=== PATIENT | female | born 1955 | race Caucasian/White ===

== ENCOUNTER 2016-09-25 14:09 | Inpatient (IN) | payer OTHER ==
[~2016-09-25] VITALS: Ht 149.8 cm; Wt 137.2 kg
--- NOTE | ~2016-09-25 | ST ---
[place], [place] EXERCISE STRESS TEST REPORT NAME: GUIDO OGDEN UNIT #: [id number] ROOM: 532 DOCTOR: NICOLE CEE MD BIRTHDATE: [birth year] DOS: 09/26/2016 Lexiscan portion of the Lexiscan Cardiolite. Baseline cardiogram, sinus rhythm, normal axis, normal intervals, poor R-wave progression in the anterior leads 0.4 mg Lexiscan, duration of 10 seconds. With Lexiscan, the patient had some chest pressure. No obvious EKG changes, suggestion of myocardial injury or infarction. Hemodynamically stable blood pressure. FINAL IMPRESSION: No EKG changes with Lexiscan. No chest pain with Lexiscan. Positive chest pressure with Lexiscan. Blood pressure and heart rate responses normal. Nuclear images will be reported separately. NICOLE CEE MD CM:STRESS:EXERCISE STRESS TEST REPORT [id number] NICOLE CEE MD
--- NOTE | ~2016-09-25 | CON ---
[place], [place] REPORT OF CONSULTATION NAME: GUIDO OGDEN UNIT #: [id number] ROOM: 532 DOCTOR: NICOLE CEE MD BIRTHDATE: [birth year] DOS: 09/25/2016 HISTORY OF PRESENT ILLNESS: A 61-year-old female apparently admitted with [facility]. She was doing the laundry at the time of chest pain. She states that she took 1 sublingual nitro. No acute EKG changes suggestion of myocardial injury or infarction. The patient has done quite well from the cardiac point of view. PAST MEDICAL HISTORY: ____, depression, chronic pain disorder, hemochromatosis, hypothyroidism, history of thyroidectomy, hysterectomy, and cholecystectomy. SOCIAL HISTORY: Does not drink or smoke. FAMILY HISTORY: Not contributory. ALLERGIES: TO PENICILLIN, CIPRO, IODINE. HOME MEDICATIONS: Atenolol, levothyroxine, sertraline and Coumadin. REVIEW OF SYSTEMS: CONSTITUTIONAL: No fever, no chills. HEENT: No visual disturbances or hearing problems. CARDIOVASCULAR: As per HPI. GASTROINTESTINAL: No nausea, no vomiting. GENITOURINARY: No dysuria, hematuria. NEUROLOGIC: No syncope. All other review of systems are negative. PHYSICAL EXAMINATION: VITAL SIGNS: Blood pressure is 140/80. HEENT: Unremarkable. NECK: Supple, no JVD, no thyromegaly, no lymphadenopathy. LUNGS: Clear to auscultation and percussion. HEART: Heart sounds are regular. ABDOMEN: Soft, nontender. NEUROLOGICAL: Stable. LABORATORY DATA: Electrolytes are normal. Creatinine is normal. GFR is normal. INR is normal. Hemoglobin 14 and hematocrit within normal limits. EKG, sinus with nonspecific ST-T changes. IMPRESSION: Atypical chest pain, chronic pain disorder, gastroesophageal reflux disease, [place], [place] REPORT OF CONSULTATION NAME: GUIDO OGDEN UNIT #: [id number] ROOM: 532 DOCTOR: NICOLE CEE MD BIRTHDATE: [birth year] hemochromatosis, hypercoagulable state. RECOMMENDATIONS: We will review the echocardiogram. Continue with other medications. Monitor the heart rate and blood pressure and cardiac enzymes are all negative. Consideration should be given for an outpatient stress test. NICOLE CEE MD CM:CONSTR:REPORT OF CONSULTATION 0 09/26/16 0730 interface
[~2016-09-25 14:09] MED LIST: AMITRIPTYLINE75 MG PO; ATENOLOL50 MG PO; BACLOFEN10 MG PO; DURAGESIC50 MCG/HR TD; LEVOTHYROXINE0.2 MG PO; LISINOPRIL5 MG PO; MACROBID100 M1 PO; MORPHINE SULFAT15 MG PO; MOTRIN800 MG PO; NORTRIPTYLINE H10 M1 PO; OMEPRAZOLE20 MG PO; OMEPRAZOLE40 MG PO; SEPTRA DS 800 M1 TAB PO; SERTRALINE HCL100 MG PO; SULINDAC150 MG PO; SULINDAC200 MG PO; TRAZODONE50 MG PO; VICODIN ES 7501 TA1 PO; VITAMIN B11000 MCG/M IM; VITAMIN D5000 IU PO; WARFARIN2 MG PO; XANAX0.5 MG PO; ZITHROMAX Z PA250 MG PO
[2016-09-25 14:15] VITALS: BP 160/84
[2016-09-25] MEDS ORDERED: ROBAXIN-750750 MG PO (14:21)
[2016-09-25 14:34] LABS: BASO # 0.1 10*3/uL (0.0-0.1); BASO % 0.8 % (0.0-1.0); EOS # 0.2 10*3/uL (0.0-0.4); EOS % 2.5 % (1.0-4.0); HEMATOCRIT 44.9 % (37.0-47.0); HEMOGLOBIN 14.9 g/dl (12.0-16.0); LYMPH # 2.3 10*3/uL (1.3-4.4); MEAN CELL VOLUME 88.4 fl (81.0-99.0); MEAN CORPUSCULAR HGB 29.3 pg (27.0-31.0); MEAN CORPUSCULAR HGB CONC 33.2 g/dl (33.0-37.0); MEAN PLATELET VOLUME 11.5 fl (9.6-12.3); MONO # 0.5 10*3/uL (0.1-1.0); MONO % 6.9 % (3.0-9.0); NEUT # 4.5 10*3/uL (2.3-7.9); NEUT % 59.5 % (47.0-73.0); PLATELET COUNT AUTOMATED 171 10*3/uL (130-400); RED BLOOD COUNT 5.08 10*6/uL (4.10-5.10); RED CELL DISTRI WIDTH 12.2 % (0-14.5); WHITE BLOOD COUNT 7.5 10*3/uL (4.8-10.8)
[2016-09-25 14:44] LABS: INTERNATIONAL NORM RATIO 3.3 (2.0-3.5); PROTHROMBIN TIME 37.6 SECONDS (9.0-12.4)
[2016-09-25 14:53] LABS: ALBUMIN 3.3 gm/dl (3.1-4.5); ALKALINE PHOSPHATASE 55 U/L (45-117); BILIRUBIN, TOTAL 0.6 mg/dl (0.2-1.0); BUN 14 mg/dl (7-24); C-REACTIVE PROTEIN 0.49 MG/DL (0-0.3); CARBON DIOXIDE 24 mmol/L (21-32); CHLORIDE 109 mmol/L (98-107); CKMB 0.9 ng/ml (0.5-3.6); CPK 84 U/L (26-192); EST GLOM FILT AFRICAN AMERICAN > 60 ml/min; GLUCOSE 125 mg/dL (65-99); POTASSIUM 4.4 mmol/L (3.5-5.1); SGOT/AST 30 IU/L (3-35); SGPT/ALT 35 U/L (12-78); SODIUM 143 mmol/L (136-145)
[2016-09-25 14:55] LABS: TROPONIN I < 0.015 ng/ml (<0.045)
[2016-09-25 15:16] VITALS: BP 159/92
[2016-09-25 15:31] VITALS: BP 161/104
[2016-09-25 15:45] VITALS: BP 143/80
[2016-09-25] MEDS ORDERED: ZOLOFT100 MG PO (16:03)
[2016-09-25 18:25] LABS: CKMB 0.8 ng/ml (0.5-3.6)
[2016-09-25] MEDS ORDERED: SULINDAC150 MG PO (19:37)
[2016-09-25] MEDS ORDERED: HYDR1000 IM (19:44)
[2016-09-25] MEDS ORDERED: NATURE'S BLEND F1 MG PO (19:44)
[2016-09-26] VITALS: BP 124/65
[2016-09-26 00:20] LABS: CKMB < 0.5 ng/ml (0.5-3.6); CPK 83 U/L (26-192)
[2016-09-26 06:17] LABS: BASO # 0.1 10*3/uL (0.0-0.1); BASO % 0.7 % (0.0-1.0); EOS # 0.2 10*3/uL (0.0-0.4); EOS % 2.6 % (1.0-4.0); HEMATOCRIT 44.1 % (37.0-47.0); HEMOGLOBIN 14.6 g/dl (12.0-16.0); LYMPH # 2.5 10*3/uL (1.3-4.4); LYMPH % 35.4 % (27.0-41.0); MEAN CELL VOLUME 90.4 fl (81.0-99.0); MEAN CORPUSCULAR HGB 29.9 pg (27.0-31.0); MEAN CORPUSCULAR HGB CONC 33.1 g/dl (33.0-37.0); MEAN PLATELET VOLUME 11.4 fl (9.6-12.3); MONO # 0.7 10*3/uL (0.1-1.0); MONO % 9.5 % (3.0-9.0); NEUT # 3.6 10*3/uL (2.3-7.9); NEUT % 51.5 % (47.0-73.0); PLATELET COUNT AUTOMATED 180 10*3/uL (130-400); RED BLOOD COUNT 4.88 10*6/uL (4.10-5.10); RED CELL DISTRI WIDTH 12.6 % (0-14.5); WHITE BLOOD COUNT 6.9 10*3/uL (4.8-10.8)
[2016-09-26 06:23] LABS: CKMB < 0.5 ng/ml (0.5-3.6); CPK 91 U/L (26-192)
[2016-09-26 06:25] LABS: HEMOGLOBIN A1c 6.5 % (4.8-5.6)
[2016-09-26 06:45] LABS: ALBUMIN 3.2 gm/dl (3.1-4.5); ALKALINE PHOSPHATASE 55 U/L (45-117); BILIRUBIN, TOTAL 0.6 mg/dl (0.2-1.0); BUN 13 mg/dl (7-24); CARBON DIOXIDE 26 mmol/L (21-32); CHLORIDE 107 mmol/L (98-107); CHOLESTEROL 175 mg/dL (<200); EST GLOM FILT AFRICAN AMERICAN > 60 ml/min; GLUCOSE 122 mg/dL (65-99); HDL CHOLESTEROL 51 mg/dl (40-60); LDL CHOLESTEROL 86 mg/dL (9-159); MAGNESIUM 2.1 mg/dL (1.5-2.1); PHOSPHOROUS 3.4 mg/dL (2.5-4.9); POTASSIUM 4.1 mmol/L (3.5-5.1); SGOT/AST 23 IU/L (3-35); SGPT/ALT 31 U/L (12-78); SODIUM 142 mmol/L (136-145); TOTAL PROTEIN 6.8 gm/dL (6.4-8.2); TRIGLYCERIDES 188 mg/dl (<150); VLDL CHOLESTEROL 38 mg/dL (6-40)
[2016-09-26 06:48] LABS: PROTHROMBIN TIME 34.4 SECONDS (9.0-12.4)
[2016-09-26 06:51] LABS: THYROID STIM HORMONE (HS) 0.053 uIU/ml (0.358-4.75)
[2016-09-26 07:05] LABS: VITAMIN D, 25-HYDROXY 67.1 ng/mL (30-100)
[2016-09-26] MEDS ORDERED: NORVASC2.5 MG PO (07:06)
[2016-09-26 07:10] LABS: FOLIC ACID > 24.00 ng/mL (>5.38)
[2016-09-26 09:40] VITALS: BP 107/82
[2016-09-26 12:00] VITALS: BP 121/75
[2016-09-26 16:00] VITALS: BP 130/74
== END 2016-09-26 17:32 | disposition home or self-care (01) | DRG 392 ==
LOC: ED 14:09 → 5E 15:14 → EDHOLD 15:14 → 5E 15:23
PROVIDERS: Emergency Medicine; Hospitalist
PROC: 4A02XM4 Measurement of Cardiac Total Activity, External Approach (ICD-10-PCS; principal; 2016-09-26)
PROC: 3E073KZ Introduction of Other Diagnostic Substance into Coronary Artery, Percutaneous Approach (ICD-10-PCS; principal; 2016-09-26)
DX: K21.9 Gastro-esophageal reflux disease without esophagitis (principal); D68.51 Activated protein C resistance; D68.59 Other primary thrombophilia; I82.502 Chronic embolism and thrombosis of unspecified deep veins of left lower extremity; R07.89 Other chest pain; G89.29 Other chronic pain; E83.119 Hemochromatosis, unspecified; F32.9 Major depressive disorder, single episode, unspecified; G47.00 Insomnia, unspecified; E89.0 Postprocedural hypothyroidism; Z90.710 Acquired absence of both cervix and uterus; Z90.49 Acquired absence of other specified parts of digestive tract; Z82.49 Family history of ischemic heart disease and other diseases of the circulatory system; Z88.0 Allergy status to penicillin; Z88.1 Allergy status to other antibiotic agents; Z88.2 Allergy status to sulfonamides; Z88.8 Allergy status to other drugs, medicaments and biological substances; Z91.041 Radiographic dye allergy status; Z79.01 Long term (current) use of anticoagulants; Z79.899 Other long term (current) drug therapy; Z91.048 Other nonmedicinal substance allergy status

== ENCOUNTER 2019-05-01 15:08 | Inpatient (IN) | payer OTHER ==
[~2019-05-01] VITALS: Ht 152.4 cm; Wt 137.9 kg
[~2019-05-01 15:08] MED LIST changes: +HYDR1000 IM; +NATURE'S BLEND F1 MG PO; +NORVASC2.5 MG PO; +ROBAXIN-750750 MG PO; +ZOLOFT100 MG PO
[2019-05-01 16:19] LABS: BASO # 0.1 10*3/uL (0.0-0.1); BASO % 0.6 % (0.0-1.0); EOS # 0.1 10*3/uL (0.0-0.4); EOS % 0.8 % (1.0-4.0); HEMATOCRIT 44.1 % (37.0-47.0); HEMOGLOBIN 14.1 g/dl (12.0-16.0); LYMPH # 1.8 10*3/uL (1.3-4.4); LYMPH % 16.1 % (27.0-41.0); MEAN CELL VOLUME 94.6 fl (81.0-99.0); MEAN CORPUSCULAR HGB 30.3 pg (27.0-31.0); MEAN PLATELET VOLUME 11.3 fl (9.6-12.3); MONO % 9.3 % (3.0-9.0); NEUT # 7.9 10*3/uL (2.3-7.9); NEUT % 72.7 % (47.0-73.0); PLATELET COUNT AUTOMATED 164 10*3/uL (130-400); RED BLOOD COUNT 4.66 10*6/uL (4.10-5.10); RED CELL DISTRI WIDTH 13.2 % (0-14.5); WHITE BLOOD COUNT 10.9 10*3/uL (4.8-10.8)
[2019-05-01 16:38] LABS: ALBUMIN 3.2 gm/dl (3.1-4.5); ALKALINE PHOSPHATASE 72 U/L (45-117); BUN 17 mg/dl (7-24); CHLORIDE 107 mmol/L (98-107); CREATININE 0.85 mg/dL (0.55-1.02); POTASSIUM 3.8 mmol/L (3.5-5.1); SGOT/AST 17 IU/L (3-35); SGPT/ALT 23 U/L (12-78); SODIUM 138 mmol/L (136-145); TOTAL PROTEIN 7.1 gm/dL (6.4-8.2)
[2019-05-01 17:00] LABS: INTERNATIONAL NORM RATIO 1.8 (2.0-3.5)
[2019-05-01 18:15] VITALS: BP 164/106
--- NOTE | 2019-05-01 18:15 | NUR ---
Time: 1814 A 63 year old f admitted to 5E under services of SARAHY ENCINAS DO. Pt. arrived via wheel chair from ER. Chief complaint: cellulitis right hand BRYAN ALDANA
[2019-05-01] MEDS ORDERED: VITAMIN D35000 UNIT PO (19:21)
[2019-05-01] MEDS ORDERED: LEVOXYL150 MCG PO (19:24)
[2019-05-01] MEDS ORDERED: ATENOLOL50 M1 PO (19:26)
[2019-05-01] MEDS ORDERED: NORCO 7.5-3251 EACH PO (19:27)
[2019-05-01 20:00] VITALS: BP 141/81
--- NOTE | 2019-05-01 20:18 | NUR ---
24 HR chart check completed.
--- NOTE | 2019-05-01 21:00 | NUR ---
RESTING IN BED. RESPIRATIONS EASY. LUNGS DIMINISHED, CLEAR. PULSE OX 94% RA. RIGHT INDEX FINGER RED, WARM, AND EDEMATOUS. CALL LIGHT WITHIN REACH.
--- NOTE | 2019-05-01 22:30 | NUR ---
MEDICATED WITH ROUTINE NORCO TO ASSIST WITH RIGHT FINGER "THROBBING" RATING AN 8. WILL MONITOR
[2019-05-01] MEDS ORDERED: AMLODIPINE BES2.5 MG PO (22:32)
[2019-05-02] VITALS (10 sets, daily range): BP systolic 132–190; BP diastolic 82–108
--- NOTE | 2019-05-02 | NUR ---
MEDS EFFECTIVE. RESTING WITH EYES CLOSED. RESPIRATIONS EASY. VSS. CALL LIGHT WITHIN REACH
--- NOTE | 2019-05-02 04:52 | NUR ---
DOZED THROUGHOUT NIGHT. RIGHT INDEX FINGER REMAINS RED, WARM, AND EDEMATOUS - CONTINUES TO C/O PAIN/THROBBING RATING AN 8, MEDICATED WITH TYLENOL PER PRN ORDER. CALL LIGHT WITHIN REACH. WILL MONITOR
--- NOTE | 2019-05-02 06:00 | NUR ---
STATES EARLIER TYLENOL "HELPING". OFFERED MORPHINE PER PRN ORDER, DECLINED.
[2019-05-02 06:21] LABS: BASO # 0.1 10*3/uL (0.0-0.1); BASO % 0.5 % (0.0-1.0); BUN 18 mg/dl (7-24); CHLORIDE 108 mmol/L (98-107); CREATININE 0.79 mg/dL (0.55-1.02); EOS # 0.1 10*3/uL (0.0-0.4); EOS % 1.5 % (1.0-4.0); HEMATOCRIT 42.9 % (37.0-47.0); HEMOGLOBIN 13.5 g/dl (12.0-16.0); LYMPH % 22.1 % (27.0-41.0); MEAN CELL VOLUME 92.9 fl (81.0-99.0); MEAN CORPUSCULAR HGB 29.2 pg (27.0-31.0); MEAN CORPUSCULAR HGB CONC 31.5 g/dl (33.0-37.0); MEAN PLATELET VOLUME 11.9 fl (9.6-12.3); MONO # 0.9 10*3/uL (0.1-1.0); MONO % 10.2 % (3.0-9.0); NEUT % 65.4 % (47.0-73.0); PLATELET COUNT AUTOMATED 174 10*3/uL (130-400); POTASSIUM 3.7 mmol/L (3.5-5.1); RED BLOOD COUNT 4.62 10*6/uL (4.10-5.10); RED CELL DISTRI WIDTH 13.3 % (0-14.5); SODIUM 140 mmol/L (136-145); WHITE BLOOD COUNT 9.2 10*3/uL (4.8-10.8)
[2019-05-02 06:43] LABS: INTERNATIONAL NORM RATIO 1.6 (2.0-3.5)
--- NOTE | 2019-05-02 07:47 | NUR ---
24 HR chart check completed.
--- NOTE | 2019-05-02 08:50 | NUR ---
GUIDO OGDEN [id number] Please refer to the physician's history and physical for past medical history, comorbid conditions, and allergies. Diagnosis: CELLULITIS FINGER,FAILURE OF OUTPATIENT TREATMENT Vijay Score: 22,LOW OR NO RISK WOUND DESCRIPTIONS: Wound Number: 1 Location of the wound: right index finger Thickness: Full Size: 0.3cm x 0.3cm x <0.1cm Tunneling: none Undermining: none Sinus Tract: none Presence of Exudate: none Amount: None Color: Brown Odor: None Periwound Skin Appearance: dark red 3.8cm x 7.0cm x <0.1cm light red along with dark red measures 9.5cm x 10.0, firmness Wound edges: closed Pain (associated with wound): very tender to touch How does patient state this happened? pt stated she removed a splinter on sunday which she believes she got from a ramp outside. She stated later that night it became sore and sunday her whole hand turned red she stated she followed up with her doctor his tried to lanced it in the office and wasn't able to get anything out she stated he started her on antibiotics and she was told if it wasn't better or got worse by to have it seen in the ED Surface the patient is resting on: Isoflex SKIN PREVENTION RECOMMENDATION: 1. Pressure redistribution support surface as appropriate 2. Elevate heels 3. Remove boots/TEDS every shift and reapply 4. Head of bed 30 degrees as tolerated 5. Assess nutrition and hydration 6. Manage moisture 7. Avoid the use of containment devices while in bed 8. Use absorptive products on surfaces limit layers of linens on bed 9. Turn and reposition every 1-2 hours in bed and every 1 hour in chair as tolerated 10. Weight shifts every 15 minutes while up in chair 11. Offloading with pillows or device to keep heels elevated off bed 12. Monitor skin at least every shift 13. Inspect under medical devices twice a day WOUND TREATMENT RECOMMENDATIONS: Warm compress QID. Consult ortho or general surgery for possible I&D.
--- NOTE | 2019-05-02 08:56 | NUR ---
GUIDO OGDEN [id number] Please refer to the physician's history and physical for past medical history, comorbid conditions, and allergies. Diagnosis: CELLULITIS FINGER,FAILURE OF OUTPATIENT TREATMENT Vijay Score: 22,LOW OR NO RISK WOUND DESCRIPTIONS: Wound Number: 1 Location of the wound: right index finger Thickness: Full Size: 0.3cm x 0.3cm x <0.1cm Tunneling: none Undermining: none Sinus Tract: none Presence of Exudate: none Amount: None Color: Brown Odor: None Periwound Skin Appearance: dark red 3.8cm x 7.0cm x <0.1cm light red along with dark red measures 9.5cm x 10.0, firmness Wound edges: closed Pain (associated with wound): very tender to touch How does patient state this happened? pt stated she removed a splinter on sunday which she believes she got from a ramp outside. She stated later that night it became sore and sunday her whole hand turned red she stated she followed up with her doctor his tried to lanced it in the office and wasn't able to get anything out she stated he started her on antibiotics and she was told if it wasn't better or got worse by to have it seen in the ED. Patient stated she soaked it in peroxide after the spliter was taken and when she noticed there was a little pus and she stated she has even been soaking it in espon salt. Surface the patient is resting on: Isoflex SKIN PREVENTION RECOMMENDATION: 1. Pressure redistribution support surface as appropriate 2. Elevate heels 3. Remove boots/TEDS every shift and reapply 4. Head of bed 30 degrees as tolerated 5. Assess nutrition and hydration 6. Manage moisture 7. Avoid the use of containment devices while in bed 8. Use absorptive products on surfaces limit layers of linens on bed 9. Turn and reposition every 1-2 hours in bed and every 1 hour in chair as tolerated 10. Weight shifts every 15 minutes while up in chair 11. Offloading with pillows or device to keep heels elevated off bed 12. Monitor skin at least every shift 13. Inspect under medical devices twice a day WOUND TREATMENT RECOMMENDATIONS: Warm compress QID. Consult ortho or general surgery for possible I&D.
--- NOTE | 2019-05-02 09:10 | NUR ---
Dr. Davis notified of wound care recommendations.
--- NOTE | 2019-05-02 12:00 | NUR ---
DR YUSUF NOTIFIED OF HTN POST SURGERY.
--- NOTE | 2019-05-02 13:22 | NUR ---
PO Tylenol administered for patient c/o pain to right hand/1st digit. Will continue to monitor.
--- NOTE | 2019-05-02 15:09 | NUR ---
Superintendent Stations in to talk to patient. Patient states lives at HOME with . There are few steps in the home. Physician: tato connell Pharmacy: [facility] health services: none Patient's level of ADLs: INDEPENDENT Patient has working utilities: all working DME: walker Follow-up physician's appointment after d/c: will be made by hospitalist nurse director upon discharge Does patient want to access PORTAL?: no Discharge plan discussed with patient, she lives at home with , she is independent in adls and ambualtion she states she has a walker but doesn't use it much, she states she will return home when medically stable and denies any home needs, case management will follow. JAE BUTT
--- NOTE | 2019-05-02 20:00 | NUR ---
SPOKE WITH HOSPITALIST REGARDING PAIN MEDICATION AND SINUS CONGESTION.
[2019-05-03] VITALS: BP 131/75
--- NOTE | 2019-05-03 02:00 | NUR ---
PATIENT MEDICATED SLOWLY WITH MORPHINE PER PRN ORDER FOR C/O RIGHT HAND THUMPING WITH PAIN. RATED PAIN A 8/10 WITH 10 BEING THE WORST. SEE EMAR. REINFORCED USE OF CALL LIGHT. WARM COMPRESSAPPLIED AT THIS TIME.
--- NOTE | 2019-05-03 02:14 | NUR ---
24 HR chart check completed.
[2019-05-03 08:00] VITALS: BP 144/81
[2019-05-03 09:17] LABS: BASO % 0.6 % (0.0-1.0); EOS # 0.2 10*3/uL (0.0-0.4); EOS % 2.4 % (1.0-4.0); HEMOGLOBIN 13.2 g/dl (12.0-16.0); LYMPH # 1.9 10*3/uL (1.3-4.4); LYMPH % 28.4 % (27.0-41.0); MEAN CELL VOLUME 93.5 fl (81.0-99.0); MEAN CORPUSCULAR HGB 29.4 pg (27.0-31.0); MEAN CORPUSCULAR HGB CONC 31.4 g/dl (33.0-37.0); MEAN PLATELET VOLUME 11.3 fl (9.6-12.3); MONO # 0.7 10*3/uL (0.1-1.0); MONO % 9.8 % (3.0-9.0); NEUT # 3.9 10*3/uL (2.3-7.9); NEUT % 58.3 % (47.0-73.0); PLATELET COUNT AUTOMATED 173 10*3/uL (130-400); RED BLOOD COUNT 4.49 10*6/uL (4.10-5.10); RED CELL DISTRI WIDTH 13.2 % (0-14.5); WHITE BLOOD COUNT 6.7 10*3/uL (4.8-10.8)
[2019-05-03 09:36] LABS: BUN 17 mg/dl (7-24); CHLORIDE 109 mmol/L (98-107); CREATININE 0.81 mg/dL (0.55-1.02); POTASSIUM 4.2 mmol/L (3.5-5.1); SODIUM 140 mmol/L (136-145)
[2019-05-03 12:00] VITALS: BP 134/94
--- NOTE | 2019-05-03 13:00 | NUR ---
pt requested and was medicated with Tylenol for c/o right finger pain. call light in reach. will monitor
--- NOTE | 2019-05-03 14:00 | NUR ---
MEDICATION EFFECTIVE PER PT. WILL MONITOR
[2019-05-03 16:00] VITALS: BP 128/64
--- NOTE | 2019-05-03 16:00 | NUR ---
DR MURPHY IN TO SEE PT, DRSG REMOVED. POST OP WOUND PHOTOS TAKEN. NEW DRSG APPLIED. PT TOLERATED WELL. CALL LIGHT IN REACH. WILL MONITOR
--- NOTE | 2019-05-03 17:32 | NUR ---
DR BROWN CALLED AND NOTIFIED OF PT DECLINING TO HAVE BSG TAKEN. PT STATES SHE DOESN'T CHECK IT AT HOME. HE STATES UNDERSTANDING, BUT STATES TO JUST PEDRO THEM REFUSED. ALSO TO MONITOR FOR S/S OF HYPO/HYPERGLYCEMIA.
[2019-05-03 20:00] VITALS: BP 117/86
--- NOTE | 2019-05-03 23:02 | NUR ---
24 HR chart check completed.
[2019-05-04] VITALS: BP 141/70
--- NOTE | 2019-05-04 00:52 | NUR ---
PRN MORPHINE GIVEN FOR PT COMPLAINTS OF PAIN AND BURNING IN HER FINGER. CALL LIGHT WITHIN REACH, WILL MONITOR
--- NOTE | 2019-05-04 01:30 | NUR ---
PRN MORPHINE EFFECTIVE PER PT
[2019-05-04 07:01] LABS: BUN 17 mg/dl (7-24); CHLORIDE 109 mmol/L (98-107); CREATININE 0.76 mg/dL (0.55-1.02); POTASSIUM 3.9 mmol/L (3.5-5.1); SODIUM 142 mmol/L (136-145)
[2019-05-04 07:11] LABS: BASO % 0.5 % (0.0-1.0); EOS # 0.2 10*3/uL (0.0-0.4); EOS % 3.4 % (1.0-4.0); HEMATOCRIT 41.3 % (37.0-47.0); LYMPH # 2.2 10*3/uL (1.3-4.4); LYMPH % 36.1 % (27.0-41.0); MEAN CELL VOLUME 93.4 fl (81.0-99.0); MEAN CORPUSCULAR HGB 29.4 pg (27.0-31.0); MEAN CORPUSCULAR HGB CONC 31.5 g/dl (33.0-37.0); MEAN PLATELET VOLUME 11.3 fl (9.6-12.3); MONO # 0.6 10*3/uL (0.1-1.0); MONO % 10.4 % (3.0-9.0); NEUT # 3.1 10*3/uL (2.3-7.9); NEUT % 49.3 % (47.0-73.0); PLATELET COUNT AUTOMATED 179 10*3/uL (130-400); RED BLOOD COUNT 4.42 10*6/uL (4.10-5.10); RED CELL DISTRI WIDTH 13.3 % (0-14.5); WHITE BLOOD COUNT 6.2 10*3/uL (4.8-10.8)
[2019-05-04 07:28] LABS: INTERNATIONAL NORM RATIO 1.9 (2.0-3.5)
[2019-05-04 08:00] VITALS: BP 139/77
--- NOTE | 2019-05-04 09:00 | NUR ---
DR MURPHY IN TO SEE PT, DRSG REMOVED. DR MURPHY STATES OK FOR PT TO BE DISCHARGED ON PO ABX. FINGER DRSG APPLIED. CALL LIGHT IN REACH. WILL MONITOR
[2019-05-04] MEDS ORDERED: DOXYCYCLINE100 M3 PO (12:29)
--- NOTE | 2019-05-04 13:33 | NUR ---
Discharge instructions reviewed with patient/family. Patient receptive and verbalizes understanding. Follow-up care arranged. Written instructions given to patient/family. RICARDO MILLS
== END 2019-05-04 13:33 | disposition home or self-care (01) | DRG 603 ==
LOC: ED 15:08 → EDHOLD 16:59 → 5E 16:59
PROVIDERS: Internal Medicine; Nurse Practitioner Family; ADMIT Family Medicine
PROC: 0H9FXZZ Drainage of Right Hand Skin, External Approach (ICD-10-PCS; principal; 2019-05-02)
DX: L03.011 Cellulitis of right finger (principal); D68.51 Activated protein C resistance; E44.0 Moderate protein-calorie malnutrition; Z68.43 Body mass index [BMI] 50.0-59.9, adult; L02.511 Cutaneous abscess of right hand; I82.402 Acute embolism and thrombosis of unspecified deep veins of left lower extremity; R73.9 Hyperglycemia, unspecified; E66.01 Morbid (severe) obesity due to excess calories; E03.9 Hypothyroidism, unspecified; E83.119 Hemochromatosis, unspecified; K21.9 Gastro-esophageal reflux disease without esophagitis; M79.7 Fibromyalgia; I10 Essential (primary) hypertension; E87.8 Other disorders of electrolyte and fluid balance, not elsewhere classified; B95.61 Methicillin susceptible Staphylococcus aureus infection as the cause of diseases classified elsewhere; Z86.718 Personal history of other venous thrombosis and embolism; Z79.01 Long term (current) use of anticoagulants; Z88.1 Allergy status to other antibiotic agents; Z88.0 Allergy status to penicillin; Z88.8 Allergy status to other drugs, medicaments and biological substances; Z90.710 Acquired absence of both cervix and uterus; Z90.49 Acquired absence of other specified parts of digestive tract; Z82.49 Family history of ischemic heart disease and other diseases of the circulatory system; M54.9 Dorsalgia, unspecified; G89.29 Other chronic pain; F32.9 Major depressive disorder, single episode, unspecified; Z79.899 Other long term (current) drug therapy

== ENCOUNTER 2019-12-15 21:39 | Inpatient (IN) | payer OTHER ==
[~2019-12-15] VITALS: Ht 152.4 cm; Wt 141.8 kg
[~2019-12-15 21:39] MED LIST changes: +AMLODIPINE BES2.5 MG PO; +ATENOLOL50 M1 PO; +DOXYCYCLINE100 M3 PO; +LEVOXYL150 MCG PO; +NORCO 7.5-3251 EACH PO; +VITAMIN D35000 UNIT PO
[2019-12-15 21:48] VITALS: BP 131/88
[2019-12-15 23:09] LABS: CLARITY CLEAR (CLEAR); COLOR YELLOW (YELLOW)
[2019-12-15 23:12] LABS: BILIRUBIN NEGATIVE; BLOOD TRACE-INTACT (NEGATIVE); GLUCOSE 3+; KETONE 1+; LEUKO ESTERASE NEGATIVE (NEGATIVE); NITRITE NEGATIVE (NEGATIVE); PH 5.5 (4.5-8.0)
[2019-12-15 23:22] LABS: WBC 0-2 wbc/hpf (0-5)
[2019-12-15 23:27] LABS: BASO % 0.3 % (0.0-1.0); HEMATOCRIT 45.9 % (37.0-47.0); LYMPH % 10.8 % (27.0-41.0); MEAN CELL VOLUME 91.6 fl (81.0-99.0); MEAN CORPUSCULAR HGB 29.3 pg (27.0-31.0); MONO # 0.2 10*3/uL (0.1-1.0); MONO % 2.1 % (3.0-9.0); NEUT # 8.3 10*3/uL (2.3-7.9); NEUT % 86.4 % (47.0-73.0); PLATELET COUNT AUTOMATED 188 10*3/uL (130-400); RED BLOOD COUNT 5.01 10*6/uL (4.10-5.10); RED CELL DISTRI WIDTH 13.7 % (0-14.5); WHITE BLOOD COUNT 9.7 10*3/uL (4.8-10.8)
[2019-12-15 23:43] LABS: ALBUMIN 3.3 gm/dl (3.1-4.5); ALKALINE PHOSPHATASE 73 U/L (45-117); BUN 20 mg/dl (7-24); CHLORIDE 108 mmol/L (98-107); CREATININE 0.99 mg/dL (0.55-1.02); POTASSIUM 3.7 mmol/L (3.5-5.1); SGOT/AST 19 IU/L (3-35); SGPT/ALT 27 U/L (12-78); SODIUM 138 mmol/L (136-145); TOTAL PROTEIN 7.3 gm/dL (6.4-8.2)
[2019-12-16 01:35] VITALS: BP 136/78
[2019-12-16 02:20] VITALS: BP 154/100
--- NOTE | 2019-12-16 02:20 | NUR ---
A 64, admitted to 5E, under the services of ALEXA Johnson DO with a diagnosis of ACUTE EXACERBATION OF CHRONIC LOW BACK PAIN. Chief complaint is BACK PAIN. Patient arrived via ambulance from ER. Monitor applied. Initial assessment completed. Vital signs taken and recorded. ALEXA JOHNSON DO notified of admission to the unit. Orders received. See assessment for past medical history, medications and allergies. Patient and/or family oriented to unit. visitation policy reviewed. Clothing/patient valuable form completed. ROBERT BESS
[2019-12-16] MEDS ORDERED: WARFARIN SOD2 MG PO (02:37)
[2019-12-16] MEDS ORDERED: SERTRALINE HYD100 MG PO (02:38)
[2019-12-16] MEDS ORDERED: B121000 MCG/1 IM (02:41)
[2019-12-16] MEDS ORDERED: NORTRIPTYLINE10 MG PO (02:43)
[2019-12-16] MEDS ORDERED: HYDROCODONE-AC1 EAC2 PO (02:44)
[2019-12-16] MEDS ORDERED: OMEPRAZOLE40 MG PO (02:44)
--- NOTE | 2019-12-16 02:46 | NUR ---
MED REC UP TO DATE PER LIST PROVIDED BY PATIENT. NOTIFIED.
[2019-12-16 08:00] VITALS: BP 150/80; BP 164/129
--- NOTE | 2019-12-16 08:07 | NUR ---
PT RESTING IN BED/ SEE SHIFT ASSESSMENT WILL MONITOR . CALL LIGHT WITHIN REACH
--- NOTE | 2019-12-16 08:07 | NUR ---
PHYSICAL THERAPY Screen received, pt admitted from home for acute exacerbation of chronic LBP with multiple falls. Pt could benefit from PT consult as medically appropriate. Thank you. Sukhi Harkins SPT Donna Cronin PT
--- NOTE | 2019-12-16 08:13 | NUR ---
PT REQUESTED AND GIVEN PERCOCET FOR C/O BACK PAIN . PT RATES PAIN 10/10 WILL MONITOR
--- NOTE | 2019-12-16 09:00 | NUR ---
PT STATES THAT PERCOCET HELPED A LITTLE/. WILL MONITOR
--- NOTE | 2019-12-16 09:30 | NUR ---
PT CRYING THAT SHE CANT PEE ON BSC. PT THEN WALKED INTO BR AND DID URINATE
--- NOTE | 2019-12-16 09:30 | NUR ---
PT CRYING THAT SHE CAN NOT URINATE ON BSC. PT THEN WALKED INTO BR AND DID URINATE
[2019-12-16 12:00] VITALS: BP 150/84
[2019-12-16 13:13] LABS: INTERNATIONAL NORM RATIO 2.5 (2.0-3.5)
[2019-12-16 16:00] VITALS: BP 148/72
[2019-12-16 20:00] VITALS: BP 153/93
--- NOTE | 2019-12-16 20:21 | NUR ---
PATIENT MEDICATED WITH PERCOCET FOR COMPLAINTS OF LOWER BACK PAIN. WILL MONITOR FOR EFFECTIVENESS. PATIENT SITTING ON BEDSIDE COMMODE STATING SHE CAN'T VOID AND REQUESTING TO BE STRAIGHT CATHED. VOIDED 50CC URINE. PATINET BLADDER SCANNED FOR 0CC URINE. NOTIFIED DR. NUNEZ AND SHE STATED THERE IS NO NEED TO STRAIGHT CATH HER IF IT ISN'T SHOWING ANY URINE. HOPE RN ALSO SCANNED HER FOR 0CC. WILL CONTINUE TO MONITOR.
--- NOTE | 2019-12-16 21:15 | NUR ---
PERCOCET EFFECTIVE AT THIS TIME. PATIENT RESTING IN BED WATCHING TV. NO SIGNS OR SYMPTOMS OF DISTRESS NOTED. CALL LIGHT IN REACH.
[2019-12-17] VITALS: BP 144/86
--- NOTE | 2019-12-17 03:16 | NUR ---
PATIENT MEDICATED WITH PERCOCET FOR COMPLAINTS OF BACK PAIN. WILL CONTINUE TO MONITOR.
[2019-12-17 06:24] LABS: BASO % 0.5 % (0.0-1.0); EOS # 0.2 10*3/uL (0.0-0.4); EOS % 1.7 % (1.0-4.0); HEMATOCRIT 43.3 % (37.0-47.0); LYMPH # 2.5 10*3/uL (1.3-4.4); LYMPH % 28.5 % (27.0-41.0); MEAN CELL VOLUME 93.5 fl (81.0-99.0); MEAN CORPUSCULAR HGB 29.6 pg (27.0-31.0); MEAN CORPUSCULAR HGB CONC 31.6 g/dl (33.0-37.0); MEAN PLATELET VOLUME 11.5 fl (9.6-12.3); MONO # 0.7 10*3/uL (0.1-1.0); NEUT # 5.4 10*3/uL (2.3-7.9); NEUT % 61.2 % (47.0-73.0); PLATELET COUNT AUTOMATED 174 10*3/uL (130-400); RED BLOOD COUNT 4.63 10*6/uL (4.10-5.10); RED CELL DISTRI WIDTH 14.3 % (0-14.5); WHITE BLOOD COUNT 8.8 10*3/uL (4.8-10.8)
[2019-12-17 06:40] LABS: ALBUMIN 3.4 gm/dl (3.1-4.5); BUN 23 mg/dl (7-24); CHLORIDE 109 mmol/L (98-107); CREATININE 0.86 mg/dL (0.55-1.02); POTASSIUM 3.6 mmol/L (3.5-5.1); SGOT/AST 21 IU/L (3-35); SGPT/ALT 23 U/L (12-78); SODIUM 139 mmol/L (136-145); TOTAL PROTEIN 7.1 gm/dL (6.4-8.2)
[2019-12-17 06:48] LABS: ALKALINE PHOSPHATASE 65 U/L (45-117); FREE T4 1.03 ng/dl (0.76-1.46)
[2019-12-17 07:39] LABS: VITAMIN D, 25-HYDROXY 41.8 ng/mL (30-100)
[2019-12-17 07:43] LABS: ACT PARTIAL THROMBO TIME 47.4 SECONDS (20.0-32.1); INTERNATIONAL NORM RATIO 2.6 (2.0-3.5)
[2019-12-17 08:00] VITALS: BP 160/99
--- NOTE | 2019-12-17 08:15 | NUR ---
PT RESTING IN BED. NO DISTRESS NOTED. WILL MONITOR
--- NOTE | 2019-12-17 09:00 | NUR ---
Skein Yarn Dyer in to talk to patient. Patient states lives at home with her , daughter, and 2 twin great granddaughters. There are 0 steps in the home. Physician: Dr. Bipin Landeros Pharmacy: [facility] Home health services: none Patient's level of ADLs: moderate assistance Patient has working utilities: yes DME: cane Follow-up physician's appointment after d/c: will be made by the hospitalist nurse director upon discharge Does patient want to access PORTAL?: no Discharge plan discussed with patient. She lives at home with her family and her son living next door. She states her is a dialysis patient. She needs minimal assistance with her ADLs and ambulated with a cane prior to admission. Discussed short term rehab and home health care services and at this time she refuses. She states she wants transferred to another facility where there is neurology. She thinks there is an open MRI at [facility]. If she needs surgery she would like Dr. Murray at [facility] as that is who did her 's back surgery. She states she picked up her 21 lb great granddaughter and she believes that is when her current back problems started. She states her legs are not able to hold her up. Discharge at this time undecided. Hospitalist notified. PEPE AKINS
[2019-12-17 09:40] VITALS: BP 158/70
--- NOTE | 2019-12-17 09:53 | NUR ---
PT REQUESTED AND GIVEN PERCOCET FOR C/O BACK PAIN WILL MONITOR PT RATES PAIN 11/23
--- NOTE | 2019-12-17 10:30 | NUR ---
PT STATES THAT PERCOCET HELPED A LITTLE. WILL MONITOR
--- NOTE | 2019-12-17 11:05 | NUR ---
Occupational Therapy evaluation completed on five with full evaluation to follow. Recommend occupational therapy per plan of care and SNF upon discharge. Thank you for this referral. Willa Borrero OTR/L
[2019-12-17 12:00] VITALS: BP 157/97
--- NOTE | 2019-12-17 12:33 | NUR ---
PHYSICAL THERAPY Physical Therapy evaluation completed on 5th floor with full evaluation to follow. Recommend physical therapy per plan of care and SNF upon discharge. Thank you for this referral. Sukhi Harkins SPT Donna Cronin PT
[2019-12-17 16:00] VITALS: BP 147/89
--- NOTE | 2019-12-17 17:25 | NUR ---
PT RESTING IN BED/ NO DISTRESS NOTED. WILL MONITOR
[2019-12-17 20:00] VITALS: BP 128/87
--- NOTE | 2019-12-17 21:09 | NUR ---
PRN PERCOCET GIVEN AT THIS TIME FOR 9/10 PAIN IN PATIENT BLE AND BACK. A&O X3, CALL LIGHT WITHIN REACH, WILL CONTINUE TO MONITOR.
--- NOTE | 2019-12-17 21:50 | NUR ---
PATIENT STATED THAT PRN PERCOCET WAS EFFECTIVE AT THIS TIME STATED PAIN WAS NOW A 5/10. A&O X3, CALL LIGHT WITHIN REACH, WILL CONTINUE TO MONITOR
--- NOTE | 2019-12-17 23:57 | NUR ---
24 HOUR CHART CHECK COMPLETE
[2019-12-18] VITALS (8 sets, daily range): BP systolic 114–164; BP diastolic 47–94
--- NOTE | 2019-12-18 01:30 | NUR ---
NOTIFIED BY PA THAT PATIENT ABDOMINAL SCAR APPEARED TO BE OPEN. UPON ASSESSMENT THIS RN NOTED THAT THE DISTAL END OF OLD MID-ABDOMINAL SCAR WAS OPEN, NO DRAINAGE NOTED AT THIS TIME, SEE WOUND SCREEN. PHOTO TAKEN.
--- NOTE | 2019-12-18 01:33 | NUR ---
PRN TYLENOL GIVEN PO AT THIS TIME FOR PATIENT COMPLAINT OF 8/10 HEADACHE. A&O X3, CALL LIGHT WITHIN REACH, WILL CONTINUE TO MONITOR
--- NOTE | 2019-12-18 01:55 | NUR ---
DR. FERRER NOTIFIED AT THIS TIME OF NEW WOUND AND WOUND SCREEN COMPLETED.
--- NOTE | 2019-12-18 02:15 | NUR ---
PATIENT STATED THAT PRN TYLENOL EFFECTIVE FOR HEADACHE RELIEF AT THIS TIME.
[2019-12-18 07:01] LABS: BASO # 0.1 10*3/uL (0.0-0.1); BASO % 0.8 % (0.0-1.0); EOS # 0.2 10*3/uL (0.0-0.4); EOS % 2.2 % (1.0-4.0); HEMATOCRIT 40.5 % (37.0-47.0); LYMPH # 2.6 10*3/uL (1.3-4.4); LYMPH % 29.6 % (27.0-41.0); MEAN CORPUSCULAR HGB 29.4 pg (27.0-31.0); MEAN CORPUSCULAR HGB CONC 32.3 g/dl (33.0-37.0); MEAN PLATELET VOLUME 11.6 fl (9.6-12.3); MONO # 0.9 10*3/uL (0.1-1.0); MONO % 9.5 % (3.0-9.0); NEUT # 5.1 10*3/uL (2.3-7.9); NEUT % 57.3 % (47.0-73.0); PLATELET COUNT AUTOMATED 166 10*3/uL (130-400); RED BLOOD COUNT 4.45 10*6/uL (4.10-5.10); RED CELL DISTRI WIDTH 14.3 % (0-14.5); WHITE BLOOD COUNT 8.9 10*3/uL (4.8-10.8)
[2019-12-18 07:10] LABS: BUN 28 mg/dl (7-24); CHLORIDE 109 mmol/L (98-107); CREATININE 1.02 mg/dL (0.55-1.02); POTASSIUM 4.2 mmol/L (3.5-5.1); SODIUM 138 mmol/L (136-145)
--- NOTE | 2019-12-18 08:04 | NUR ---
PHYSICAL THERAPY Screen received pt has been evaluated and is on caseload thank you Donna Cronin PT
[2019-12-18 08:23] LABS: ACT PARTIAL THROMBO TIME 47.4 SECONDS (20.0-32.1); INTERNATIONAL NORM RATIO 2.7 (2.0-3.5)
--- NOTE | 2019-12-18 09:00 | NUR ---
CM in to see patient. Discussed transfer, short term rehab, and home health care services. She states no facility wanted to take her. She is for an MRI today. She refuses short term rehab and home health care services. She states she just needs to get this taken care of and get back home to her . He is a dialysis patient and has transportation to and from by a private service. She states she doesn't drive and uses a service for transportation to and from her doctor's appt along with her . She would like to see about getting a wheelchair in her room to transport to and from the bathroom as the bariatric BSC causes her extreme pain in her legs. Discussed with floor worker transfer bay and that is not a possibility for the wheelchair as patient may try to get up on her own. Patient states she will not get up on her own but she verbalized an understanding as to why she is not able to have the wheelchair. She states she feels like she is getting a little feeling back in her legs. When medically stable she will be discharged to home. CM will continue to follow for any discharge planning needs.
--- NOTE | 2019-12-18 10:28 | NUR ---
ATIVAN 2 MG GIVEN FOR PT TO BE ABLE TO COMPLETE MRI. AWAITED PT TO AMBULATE FROM BATHROOM WITH PT AND WALKER . PT TOLERATED WELL. PT THEN TRANSPORTED TO MRI FOR MRI OF BACK PER DR SIFUENTES'S ORDER.
--- NOTE | 2019-12-18 10:30 | NUR ---
OT NOTE Pt was seen this A.M. 1:1 for 20 minute OT session. Upon arrival pt was laying prone in bed. Pt identified by name and and had complaints of "8/10 and climbing low back pain." Pt also reported that BLE's were feeling "numb". Pt transferred supine to sit EOB with modA X 2. While sitting EOB pt's B socks were donned with maxA. Pt was requesting to complete mobility to the bathroom, therapist educated pt on safety concerns with weakness and reports of BLE's feeling numb. Sit to stand completed from bed level with modA X 2 and use of w/w for UE support. Functional mobility was then completed to the bathroom with Molly X 2 and use of w/w. Throughout all mobility pt required maxA verbal and tactile prompts for correcting her posture, locking her knees out, and safety with the walker. Pt was very impulsive and presented with poor carry over of safety concerns. Pt transferred on to the standard commode with Molly and off with modA X 2 and use of grab bar for UE support. Functional mobility completed back to the transfer bed with Molly X 2 and use of w/w. Pt transferred sit to supine with modA X 2. Pt was left under transport supervision. COntinue with rec D/C plan to SNF. HEENA Mcdermott/Tamara
--- NOTE | 2019-12-18 10:54 | NUR ---
PHYSICAL THERAPY TREATMENT TIME: OUT 10:40 AM 15 MINUTES TOTAL PRESENTATION: Patient was prone in bed with bed flat Patient reports 11/23 and climbing
--- NOTE | 2019-12-18 12:45 | NUR ---
[facility] CALLED TO REPORT PT CRITICAL FINDINGS.NOTIFIED DR VERNON THAT PER DR MELVIN,RADIOLOGIST. PT IS At SERIOUS RISK FOR PARALYSIS, PT EITHER HAS HEMATOMA D/T RECENT FALLS OR MENINGIOMA.
--- NOTE | 2019-12-18 13:00 | NUR ---
DR HERNANDEZ IN TO SEE PT AND DISCUSS PLAN OF CARE AND MRI RESULTS. AWAITING ORDERS AT THIS TIME.
--- NOTE | 2019-12-18 13:08 | NUR ---
PHYSICAL THERAPY PATIENT IS ON HOLD FOR PHYSICAL AND OCCUPATIONAL THERAPY AT THIS TIME ACCORDING TO JAIME BUCKNER. PATIENT IS NOT TO BE SEEN UNTIL FURTHER NOTICE. PATIENT'S CAT SCAN SHOWED A FINDING THAT COULD CAUSE PARALYSIS. ON HOLD! JOSE FIELDS BUILDING CERTIFIER
--- NOTE | 2019-12-18 14:22 | NUR ---
NOTIFIED DR SIFUENTES THAT WE WERE UNABLE TO GAIN IV ACCESS. PARISH CURRENTLY UNAVAILABLE TO PLACE MIDLINE. MYSELF,NEMESIO MCMILLAN AND ARSENIO BARRERA HAVE BEEN UNSUCCESSFUL AFTER MULTIPLE ATTEMPTS.
[2019-12-18] MEDS ORDERED: AMLODIPINE BESYL5 MG PO (16:01)
[2019-12-18] MEDS ORDERED: TENORMIN25 MG PO (16:01)
[2019-12-18] MEDS ORDERED: SYNTHROID,LEV175 MCG PO (16:01)
--- NOTE | 2019-12-18 16:50 | NUR ---
PT REFUSES D/C PHOTO OF PANNUS AT THIS TIME.
--- NOTE | 2019-12-18 16:55 | NUR ---
Informed consent obtained from patient for Blood transfussion OF FFP.by Dr. HERNANDEZ. Patient identified by arm band. Vital signs recorded. Blood unit number verified by 2 R.N.'s. I.V. site satisfactory. Unit started at a KVO rate with Normal Saline. JUSTUS COELLO
--- NOTE | 2019-12-18 17:20 | NUR ---
FFP TRANSFUSION COMPLETED.
--- NOTE | 2019-12-18 17:54 | NUR ---
Discharge instructions reviewed with patient/family. Patient receptive and verbalizes understanding. Follow-up care arranged. Written instructions given to patient/family. JUSTUS COELLO
--- NOTE | 2019-12-18 18:06 | NUR ---
REPORT CALLED TO JAIME FINN AT [facility].
--- NOTE | 2019-12-19 07:39 | NUR ---
OCCUPATIONAL THERAPY CO-SIGN I approve of the Occupational Therapy notes written above. ANNIE POMPA, OTR/L
--- NOTE | 2019-12-19 08:17 | NUR ---
PHYSICAL THERAPY CO-SIGN I approve of the Physical Therapy notes written above. Donna Cronin PT
== END 2019-12-18 18:49 | disposition short-term general hospital (02) | DRG 83 ==
LOC: ED 21:39 → 5E 12-16 01:51 → EDHOLD 12-16 01:51 → 5E 12-16 02:01
PROVIDERS: Internal Medicine; Physician Assistant; ADMIT Internal Medicine; ATTEND Internal Medicine
PROC: 30233K1 Transfusion of Nonautologous Frozen Plasma into Peripheral Vein, Percutaneous Approach (ICD-10-PCS; principal; 2019-12-18)
DX: S06.4X9A Epidural hemorrhage with loss of consciousness of unspecified duration, initial encounter (principal); I82.402 Acute embolism and thrombosis of unspecified deep veins of left lower extremity; D68.51 Activated protein C resistance; Z68.44 Body mass index [BMI] 60.0-69.9, adult; M47.816 Spondylosis without myelopathy or radiculopathy, lumbar region; M54.5 Low back pain; E83.119 Hemochromatosis, unspecified; K21.9 Gastro-esophageal reflux disease without esophagitis; M79.7 Fibromyalgia; G47.00 Insomnia, unspecified; E03.9 Hypothyroidism, unspecified; I10 Essential (primary) hypertension; E87.8 Other disorders of electrolyte and fluid balance, not elsewhere classified; R73.9 Hyperglycemia, unspecified; R31.9 Hematuria, unspecified; K57.30 Diverticulosis of large intestine without perforation or abscess without bleeding; Z20.828 Contact with and (suspected) exposure to other viral communicable diseases; E27.8 Other specified disorders of adrenal gland; E53.8 Deficiency of other specified B group vitamins; F32.9 Major depressive disorder, single episode, unspecified; G89.4 Chronic pain syndrome; E66.01 Morbid (severe) obesity due to excess calories; Z88.0 Allergy status to penicillin; Z88.2 Allergy status to sulfonamides; Z88.8 Allergy status to other drugs, medicaments and biological substances; Z88.1 Allergy status to other antibiotic agents; Z91.041 Radiographic dye allergy status; Z90.710 Acquired absence of both cervix and uterus; Z90.49 Acquired absence of other specified parts of digestive tract; Z82.49 Family history of ischemic heart disease and other diseases of the circulatory system; X58.XXXA Exposure to other specified factors, initial encounter; Y93.89 Activity, other specified; Y92.89 Other specified places as the place of occurrence of the external cause; Y99.8 Other external cause status; Z79.899 Other long term (current) drug therapy

== ENCOUNTER 2023-10-13 20:28 | Inpatient (IN) | payer OTHER ==
[~2023-10-13] VITALS: Ht 152.4 cm; Wt 150.8 kg
[2023-10-13 20:28] VITALS: BP 116/68
[~2023-10-13 20:28] MED LIST changes: +AMLODIPINE BESYL5 MG PO; +B121000 MCG/1 IM; +HYDROCODONE-AC1 EAC2 PO; +NORTRIPTYLINE10 MG PO; +SERTRALINE HYD100 MG PO; +SYNTHROID,LEV175 MCG PO; +TENORMIN25 MG PO; +WARFARIN SOD2 MG PO
[2023-10-13] MEDS ORDERED: MORPHINE Sulfate 2 MG/ML SYR IV ONE (20:40)
[2023-10-13] MEDS ORDERED: SODIUM CHLORIDE 0.9% 1,000 ML IV ONE (20:40)
[2023-10-13 21:07] LABS: BASO # 0.1 10*3/uL (0.0-0.1); BASO % 0.6 % (0.0-1.0); EOS # 0.1 10*3/uL (0.0-0.4); EOS % 0.7 % (1.0-4.0); HEMATOCRIT 52.6 % (37.0-47.0); LYMPH # 1.7 10*3/uL (1.3-4.4); LYMPH % 13.6 % (27.0-41.0); MEAN CORPUSCULAR HGB 29.6 pg (27.0-31.0); MEAN CORPUSCULAR HGB CONC 30.8 g/dl (33.0-37.0); MEAN PLATELET VOLUME 11.1 fl (9.6-12.3); MONO # 0.7 10*3/uL (0.1-1.0); MONO % 5.8 % (3.0-9.0); NEUT # 9.8 10*3/uL (2.3-7.9); NEUT % 78.8 % (47.0-73.0); PLATELET COUNT AUTOMATED 200 10*3/uL (130-400); RED BLOOD COUNT 5.48 10*6/uL (4.10-5.10); RED CELL DISTRI WIDTH 13.3 % (0-14.5); WHITE BLOOD COUNT 12.5 10*3/uL (4.8-10.8)
[2023-10-13 21:18] LABS: ACT PARTIAL THROMBO TIME 46.4 SECONDS (20.0-32.1)
[2023-10-13] MEDS ORDERED: NORVASC10 MG PO (21:22)
[2023-10-13 21:32] LABS: ALKALINE PHOSPHATASE 68 U/L (46-116); BUN 13 mg/dl (9-23); CHLORIDE 104 mmol/L (98-107); LIPASE 30 U/L (12-53); POTASSIUM 5.1 mmol/L (3.4-5.1); SGPT/ALT 23 U/L (5-49); TOTAL PROTEIN 7.1 gm/dL (6.0-8.0)
[2023-10-13] MEDS ORDERED: SODIUM CHLORIDE 0.9% 1,000 ML IV SCH (22:00)
[2023-10-14] VITALS (7 sets, daily range): BP systolic 101–128; BP diastolic 64–75
[2023-10-14 00:30] LABS: BILIRUBIN Negative (Negative); BLOOD 2+ (Negative); CLARITY Cloudy (Clear); COLOR Yellow (Yellow); GLUCOSE Negative (Negative); KETONE 1+ (Negative); LEUKO ESTERASE 2+ (Negative); NITRITE Negative (Negative); PH 5.5 (4.5-8.0); SPECIFIC GRAVITY 1.015 (1.001-1.030); UROBILINOGEN 0.2 E.U./dl (0.0-1.0)
[2023-10-14 00:39] LABS: BACTERIA 1+; EPITHELIAL CELLS 16-20; MUCOUS 1+; RBC 16-20 rbc/hpf (0-2); WBC 21-30 wbc/hpf (0-5)
[2023-10-14] MEDS ORDERED: Ceftriaxone Sodium 1 GM/10 ML SYR IV ONE (00:50)
[2023-10-14] MEDS ORDERED: Ondansetron Hydrochloride 4 MG/2 ML VIAL IV PRN (01:00)
[2023-10-14] MEDS ORDERED: MORPHINE Sulfate 2 MG/ML SYR IV PRN (01:00)
[2023-10-14] MEDS ORDERED: Pantoprazole Sodium 40 MG TAB PO SCH (06:00)
[2023-10-14 06:05] LABS: BASO % 0.4 % (0.0-1.0); EOS # 0.1 10*3/uL (0.0-0.4); HEMATOCRIT 48.7 % (37.0-47.0); LYMPH # 2.2 10*3/uL (1.3-4.4); LYMPH % 20.8 % (27.0-41.0); MEAN CELL VOLUME 95.1 fl (81.0-99.0); MEAN CORPUSCULAR HGB 30.5 pg (27.0-31.0); MEAN PLATELET VOLUME 11.7 fl (9.6-12.3); MONO # 0.9 10*3/uL (0.1-1.0); MONO % 8.2 % (3.0-9.0); NEUT # 7.3 10*3/uL (2.3-7.9); NEUT % 69.2 % (47.0-73.0); PLATELET COUNT AUTOMATED 190 10*3/uL (130-400); RED BLOOD COUNT 5.12 10*6/uL (4.10-5.10); RED CELL DISTRI WIDTH 13.4 % (0-14.5); WHITE BLOOD COUNT 10.5 10*3/uL (4.8-10.8)
[2023-10-14 06:31] LABS: ALKALINE PHOSPHATASE 60 U/L (46-116); BUN 13 mg/dl (9-23); CHLORIDE 107 mmol/L (98-107); SGPT/ALT 17 U/L (5-49); TOTAL PROTEIN 6.4 gm/dL (6.0-8.0)
[2023-10-14] MEDS ORDERED: Fosfomycin Tromethamine 3 GM PDS PO ONE (06:55)
[2023-10-14] MEDS ORDERED: Levothyroxine Sodium 175 MCG TAB PO SCH (10:00)
[2023-10-14] MEDS ORDERED: Sertraline Hydrochloride 50 MG TAB PO SCH (10:00)
[2023-10-14] MEDS ORDERED: WARFARIN SODIUM 2 MG TAB PO SCH (18:00)
[2023-10-14] MEDS ORDERED: Ceftriaxone Sodium 1 GM in SYRINGE INFUSION 10 ML IV SCH (22:00)
[2023-10-14] MEDS ORDERED: amLODIPine besylate 5 MG TAB PO SCH (22:00)
[2023-10-14] MEDS ORDERED: NYSTATIN 15 GM BOT T SCH (22:00)
[2023-10-15] VITALS: BP 127/75
[2023-10-15] MEDS ORDERED: METOPROLOL SUCC25 M2 PO (04:32)
[2023-10-15] MEDS ORDERED: B12-FOLIC ACID1 EACH PO (04:32)
[2023-10-15] MEDS ORDERED: AMLODIPINE BESY10 MG PO (04:33)
[2023-10-15 05:58] LABS: BUN 9 mg/dl (9-23); CHLORIDE 107 mmol/L (98-107); POTASSIUM 3.9 mmol/L (3.4-5.1)
[2023-10-15 06:34] LABS: BASO # 0.1 10*3/uL (0.0-0.1); BASO % 0.5 % (0.0-1.0); EOS # 0.1 10*3/uL (0.0-0.4); EOS % 1.3 % (1.0-4.0); HEMATOCRIT 42.8 % (37.0-47.0); LYMPH % 19.3 % (27.0-41.0); MEAN CELL VOLUME 92.8 fl (81.0-99.0); MEAN CORPUSCULAR HGB 30.2 pg (27.0-31.0); MEAN CORPUSCULAR HGB CONC 32.5 g/dl (33.0-37.0); MEAN PLATELET VOLUME 11.6 fl (9.6-12.3); MONO # 0.8 10*3/uL (0.1-1.0); MONO % 7.4 % (3.0-9.0); NEUT # 7.2 10*3/uL (2.3-7.9); NEUT % 71.3 % (47.0-73.0); PLATELET COUNT AUTOMATED 165 10*3/uL (130-400); RED BLOOD COUNT 4.61 10*6/uL (4.10-5.10); RED CELL DISTRI WIDTH 13.8 % (0-14.5); WHITE BLOOD COUNT 10.1 10*3/uL (4.8-10.8)
[2023-10-15 08:00] VITALS: BP 134/66
[2023-10-15] MEDS ORDERED: Acetaminophen/Hydrocodone ES 7.5/325 tablet PO PRN (08:55)
[2023-10-15 12:00] VITALS: BP 117/80
[2023-10-15 16:00] VITALS: BP 117/70
[2023-10-15] MEDS ORDERED: WARFARIN SODIUM 2 MG TAB PO SCH (18:00)
[2023-10-15 20:00] VITALS: BP 123/83
[2023-10-16] VITALS: BP 138/80; BP 138/88
[2023-10-16 06:22] LABS: BASO # 0.1 10*3/uL (0.0-0.1); EOS # 0.2 10*3/uL (0.0-0.4); EOS % 2.7 % (1.0-4.0); HEMATOCRIT 44.2 % (37.0-47.0); LYMPH % 36.7 % (27.0-41.0); MEAN CELL VOLUME 93.4 fl (81.0-99.0); MEAN CORPUSCULAR HGB 29.8 pg (27.0-31.0); MEAN CORPUSCULAR HGB CONC 31.9 g/dl (33.0-37.0); MEAN PLATELET VOLUME 11.5 fl (9.6-12.3); MONO # 0.7 10*3/uL (0.1-1.0); MONO % 7.9 % (3.0-9.0); NEUT # 4.2 10*3/uL (2.3-7.9); NEUT % 51.3 % (47.0-73.0); PLATELET COUNT AUTOMATED 196 10*3/uL (130-400); RED BLOOD COUNT 4.73 10*6/uL (4.10-5.10); RED CELL DISTRI WIDTH 13.5 % (0-14.5); WHITE BLOOD COUNT 8.2 10*3/uL (4.8-10.8)
[2023-10-16 08:00] VITALS: BP 110/63
[2023-10-16 08:02] LABS: BUN 13 mg/dl (9-23); CHLORIDE 109 mmol/L (98-107); POTASSIUM 4.1 mmol/L (3.4-5.1)
[2023-10-16] MEDS ORDERED: OMNICEF300 MG PO (12:09)
[2023-10-16] MEDS ORDERED: Ondansetron4 MG PO (12:09)
== END 2023-10-16 14:05 | disposition home or self-care (01) | DRG 871 ==
LOC: ED 20:28 → EDHOLD 10-14 00:53 → 4E 10-14 00:53
PROVIDERS: Internal Medicine; Student in an Organized Health Care Education/Training Program; ADMIT Internal Medicine; ATTEND Internal Medicine
DX: A41.9 Sepsis, unspecified organism (principal); G93.41 Metabolic encephalopathy; N17.0 Acute kidney failure with tubular necrosis; E87.1 Hypo-osmolality and hyponatremia; K56.7 Ileus, unspecified; D68.51 Activated protein C resistance; E87.20 Acidosis, unspecified; Z68.44 Body mass index [BMI] 60.0-69.9, adult; N39.0 Urinary tract infection, site not specified; R65.20 Severe sepsis without septic shock; R73.9 Hyperglycemia, unspecified; E03.9 Hypothyroidism, unspecified; F33.41 Major depressive disorder, recurrent, in partial remission; F51.01 Primary insomnia; E83.119 Hemochromatosis, unspecified; K21.9 Gastro-esophageal reflux disease without esophagitis; E66.01 Morbid (severe) obesity due to excess calories; I10 Essential (primary) hypertension; M79.7 Fibromyalgia; M54.50 Low back pain, unspecified; G89.29 Other chronic pain; Z86.718 Personal history of other venous thrombosis and embolism; Z90.710 Acquired absence of both cervix and uterus; Z90.49 Acquired absence of other specified parts of digestive tract; Z82.49 Family history of ischemic heart disease and other diseases of the circulatory system; Z83.3 Family history of diabetes mellitus; Z88.0 Allergy status to penicillin; Z88.2 Allergy status to sulfonamides; Z91.041 Radiographic dye allergy status; Z79.899 Other long term (current) drug therapy; Z79.1 Long term (current) use of non-steroidal anti-inflammatories (NSAID); Z79.01 Long term (current) use of anticoagulants